=== PATIENT | female | born 1995 | race Caucasian/White ===

== ENCOUNTER 2019-11-28 03:20 | Emergency (ER) | payer OTHER, SELFPAY ==
[2019-11-28] MEDS ORDERED: traMADol HCl 50 MG TAB ONE (03:48)
[2019-11-28] MEDS ORDERED: AMOXicillin 250 MG CAP ONE (03:48)
== END 2019-11-28 03:54 | disposition home or self-care (01) ==
LOC: MADERS 03:20
DX: K03.81 Cracked tooth (principal); K04.7 Periapical abscess without sinus; K02.9 Dental caries, unspecified; F17.210 Nicotine dependence, cigarettes, uncomplicated
CPT/HCPCS: 99282